=== PATIENT | female | born 1990 | race Caucasian/White ===

== ENCOUNTER 2016-07-17 14:48 | Outpatient (CLI) | payer MEDICAID | END 2016-07-17 14:49 | disposition home or self-care (01) | DX: M41.84 Other forms of scoliosis, thoracic region (principal) ==

== ENCOUNTER 2016-12-17 11:27 | Outpatient (CLI) | payer MEDICAID | END 2016-12-17 11:28 | LOC: LAB.R 11:27 | PROVIDERS: ATTEND Nurse Practitioner Obstetrics & Gynecology | DX: Z36 Encounter for antenatal screening of mother (principal) | CPT/HCPCS: 87491; 87591 ==

== ENCOUNTER 2017-01-05 14:52 | Outpatient (CLI) | payer MEDICAID ==
[2017-01-05 15:42] LABS: BASOPHILS % (AUTO) 0.4 %; EOSINOPHILS # (AUTO) 0.1 10^3/uL (0.0-0.7); EOSINOPHILS % (AUTO) 1.3 %; HCT - HEMATOCRIT 36.1 % (37.0-47.0); HGB - HEMOGLOBIN 12.3 g/dL (12.0-16.0); LYMPHOCYTES # (AUTO) 1.6 10^3/uL (1.5-3.5); LYMPHOCYTES % (AUTO) 16.8 %; MEAN CORPUSCULAR HEMOGLOBIN 31.5 pg (27.0-31.0); MEAN CORPUSCULAR HGB CONC 34.2 g/dL (32.0-36.0); MEAN CORPUSCULAR VOLUME 92.1 fL (81.0-99.0); MEAN PLATELET VOLUME 6.5 fL (7.9-10.8); MONOCYTES # (AUTO) 0.6 10^3/uL (0.0-1.0); MONOCYTES % (AUTO) 6.4 %; NEUTROPHILS % (AUTO) 75.1 %; RED BLOOD COUNT 3.91 10^6/uL (4.20-5.40); RED CELL DISTRIBUTION WIDTH 12.2 % (12.0-15.0); UNCORRECTED WHITE BLOOD COUNT 9.3 x10^3/uL; WHITE BLOOD COUNT 9.3 x10^3/uL (4.8-10.8)
[2017-01-05 16:57] LABS: BILIRUBIN,URINE NEGATIVE (NEGATIVE)
[2017-01-05 17:14] LABS: UR CULTURE IF IND NOT INDICATED
[2017-01-08 17:56] LABS: TEST RESULT REPORT (())
== END 2017-01-05 14:53 | disposition home or self-care (01) ==
LOC: LAB 14:52
PROVIDERS: ATTEND Nurse Practitioner Obstetrics & Gynecology
DX: Z36 Encounter for antenatal screening of mother (principal)
CPT/HCPCS: 36415; 81001; 81599; 85025; 86762; 86780; 86850; 86900; 86901; 87086; 87340; 87389

== ENCOUNTER 2017-01-20 08:00 | Outpatient (CLI) | payer MEDICAID | END 2017-01-20 08:01 | disposition home or self-care (01) | LOC: LAB.R 08:00 | PROVIDERS: ATTEND Nurse Practitioner Obstetrics & Gynecology | DX: R30.0 Dysuria (principal) | CPT/HCPCS: 87086 ==

== ENCOUNTER 2017-02-05 16:20 | Outpatient (CLI) | payer MEDICAID ==
[2017-02-05 16:56] LABS: BILIRUBIN,URINE NEGATIVE (NEGATIVE)
[2017-02-05 17:06] LABS: WBC,URINE 0-3 /HPF (0-5)
== END 2017-02-05 16:21 | disposition home or self-care (01) ==
LOC: LAB 16:20
PROVIDERS: ATTEND Obstetrics & Gynecology
DX: R30.0 Dysuria (principal)
CPT/HCPCS: 81001; 87086

== ENCOUNTER 2017-02-27 12:15 | Outpatient (CLI) | payer SELFPAY ==
[2017-02-27 13:11] LABS: BILIRUBIN,URINE NEGATIVE (NEGATIVE); PH,URINE 5.5 PH (5.0-7.5)
[2017-02-27 13:26] LABS: UR CULTURE IF IND NOT INDICATED
[2017-03-03 10:27] LABS: TEST RESULT REPORT (())
== END 2017-02-27 12:16 | disposition home or self-care (01) ==
LOC: LAB 12:15
PROVIDERS: ATTEND Registered Nurse
DX: Z36 Encounter for antenatal screening of mother (principal); O23.42 Unspecified infection of urinary tract in pregnancy, second trimester
CPT/HCPCS: 36415; 81001; 81599; 87086

== ENCOUNTER 2017-03-09 07:16 | Outpatient (CLI) | payer MEDICAID ==
--- NOTE | 2017-03-09 13:05 | Ultrasound Report ---
OB ULTRASOUND: 03/09/2017 CLINICAL INDICATION: anatomy. TECHNIQUE: Real-time scanning was performed with claim service representative static images obtained. LAST MENSTRUAL PERIOD 11/03/2016 Clinical Age 18 weeks 0 days US Age 19 weeks 3 days EFW Hadlock 292 g EFW% Hadlock 97% Heart Rate 148 bpm EDC 08/10/2017 US EDC 07/31/2017 BPD [place] 19 weeks 3 days; Mean mm 44.3 HC [place] 19 weeks 4 days; Mean mm 170.0 AC [place] 19 weeks 3 days; Mean mm 140.3 FL [place] 19 weeks 3 days; Mean mm 30.4 Presentation cephalic Placental Location anterior Cervical Length 4.6 cm Amniotic Fluid Subjectively normal FINDINGS: There is a single viable intrauterine gestation, in cephalic presentation. heart rate is 148 BPM. The placenta is anterior, and low lying, without zulema previa. Amniotic fluid volume is subjectively normal. By size, the fetus measures 19 weeks 3 days (uncertain LMP). The following anatomic structures were visualized and appear normal: The intracranial contents, including the ventricles and posterior fossa; the lips and orbits; the spine; the heart, including 4 chamber view and outflow tracts, and diaphragm; the abdominal contents, including the stomach, the bilateral kidneys, and urinary bladder, as well as a normal 3 vessel cord insertion; 4 limbs. No free fluid or adnexal lesion is appreciated. IMPRESSION: SINGLE VIABLE INTRAUTERINE GESTATION, MEASURING 19 WEEKS 3 DAYS BY SIZE. ANTERIOR, LOW-LYING PLACENTA. THIS SHOULD BE RE-EVALUATED IN THE THIRD TRIMESTER. MTDD
== END 2017-03-09 07:17 | disposition home or self-care (01) ==
LOC: DI 07:16
PROVIDERS: ATTEND Registered Nurse
DX: Z36 Encounter for antenatal screening of mother (principal); O44.42 Low lying placenta NOS or without hemorrhage, second trimester
CPT/HCPCS: 76811

== ENCOUNTER 2017-04-04 13:36 | Outpatient (CLI) | payer MEDICAID ==
[2017-04-04 14:04] VITALS: BP 128/71
[2017-04-04 14:19] LABS: BILIRUBIN,URINE NEGATIVE (NEGATIVE)
[2017-04-04 14:45] LABS: UA CHARGE (STRIP ONLY) YES; UR CULTURE IF IND NOT INDICATED
== END 2017-04-04 14:55 | disposition home or self-care (01) ==
LOC: WFO 13:36 → FBP 13:39 → WFO 14:55
PROVIDERS: ATTEND Obstetrics & Gynecology
DX: Z34.92 Encounter for supervision of normal pregnancy, unspecified, second trimester (principal)
CPT/HCPCS: 81001; 81003; 87086; 99212

== ENCOUNTER 2017-04-13 09:59 | Outpatient (CLI) | payer MEDICAID ==
[2017-04-13 11:48] LABS: HCT - HEMATOCRIT 35.6 % (37.0-47.0); HGB - HEMOGLOBIN 12.2 g/dL (12.0-16.0); MEAN CORPUSCULAR HEMOGLOBIN 32.6 pg (27.0-31.0); MEAN CORPUSCULAR HGB CONC 34.2 g/dL (32.0-36.0); MEAN CORPUSCULAR VOLUME 95.4 fL (81.0-99.0); RED BLOOD COUNT 3.73 10^6/uL (4.20-5.40); RED CELL DISTRIBUTION WIDTH 12.7 % (12.0-15.0); WHITE BLOOD COUNT 10.2 x10^3/uL (4.8-10.8)
== END 2017-04-13 10:00 | disposition home or self-care (01) ==
LOC: LAB 09:59
PROVIDERS: ATTEND Registered Nurse
DX: Z34.82 Encounter for supervision of other normal pregnancy, second trimester (principal)
CPT/HCPCS: 36415; 82950; 86850

== ENCOUNTER 2017-06-03 11:15 | Outpatient (CLI) | payer MEDICAID ==
[2017-06-03 11:24] VITALS: BP 108/57
[2017-06-03] MEDS ORDERED: LACTATED RINGERS 1,000 ML IV ONE ×2 (11:43→11:45)
[2017-06-03 13:29] LABS: BILIRUBIN,URINE NEGATIVE (NEGATIVE); GLUCOSE, URINE (UA) NEGATIVE (NEGATIVE); KETONES,URINE (UA) TRACE mg/dL (NEGATIVE); LEUKOCYTE ESTERASE, URINE NEGATIVE (NEGATIVE); NITRITE,URINE NEGATIVE (NEGATIVE); OCCULT BLOOD,URINE NEGATIVE (NEGATIVE); PROTEIN,URINE NEGATIVE (NEGATIVE); UROBILINOGEN,URINE 0.2 (NORMAL) E.U./dL (NORMAL)
[2017-06-03 13:43] LABS: BACTERIA,URINE Few /HPF (None Seen); CLARITY,URINE CLEAR (CLEAR); RBC,URINE 0-5 /HPF (0-5); SQUAMOUS EPITHELIAL CELL,UR FEW Squamous (<= Few)
== END 2017-06-03 14:00 | disposition home or self-care (01) ==
LOC: WFO 11:15 → FBP 11:15 → WFO 14:00
PROVIDERS: ATTEND Registered Nurse
DX: O60.03 Preterm labor without delivery, third trimester (principal); O99.283 Endocrine, nutritional and metabolic diseases complicating pregnancy, third trimester; E86.0 Dehydration; Z3A.31 31 weeks gestation of pregnancy
CPT/HCPCS: 81001; 96360; 99213; J7120; 87086

== ENCOUNTER 2017-06-19 14:26 | Outpatient (CLI) | payer MEDICAID ==
[2017-06-19 14:40] VITALS: BP 126/67
== END 2017-06-19 15:30 | disposition home or self-care (01) ==
LOC: WFO 14:26 → FBP 14:27 → WFO 15:30
PROVIDERS: ATTEND Nurse Practitioner Obstetrics & Gynecology
DX: O47.03 False labor before 37 completed weeks of gestation, third trimester (principal); Z3A.49 Greater than 42 weeks gestation of pregnancy; O43.893 Other placental disorders, third trimester
CPT/HCPCS: 59025; 76815

== ENCOUNTER 2017-06-19 17:10 | Outpatient (CLI) | payer MEDICAID ==
--- NOTE | 2017-06-19 18:18 | Ultrasound Report ---
EXAM: LIMITED OBSTETRICAL ULTRASOUND EXAM DATE: 06/19/2017 05:28 PM. CLINICAL HISTORY: Check placenta and cervix. COMPARISON: None. TECHNIQUE: Real-time sonographic evaluation of the fetus performed by the finish carpenter. Multiple repre sentative static images were saved for review. DATING: Established EGA 33 weeks 2 days with CHERRY 08/05/2017. GENERAL EVALUATION Ghotra . Cardiac activity: 129 bpm. movement: Visualized. Presentation: Cephalic. Placenta: Anterior position. Amniotic fluid: Normal. RIC 12.2 cm. MVP 4.7 cm. ANATOMY MATERNAL STRUCTURES Cervix is 2.8 cm long, with open lumen 0.9 cm across. IMPRESSION: 1. Single live cephalic fetus with unremarkable anterior placenta and normal RIC of 12.2 cm. 2. Cervix 2.8 cm long, open, with lumen 0.9 cm across. RADIA The call report notification system was initiated by Dr. Ernie Adames at 18:11 hrs on 06/19/17. The above findings were discussed with Tess by Dr. Ernie Adames at 18:13 hrs on 06/19/17. Referring Provider Line: [phone] SITE ID: [id number]
== END 2017-06-19 17:11 | disposition home or self-care (01) ==
LOC: DI 17:10
PROVIDERS: ATTEND Registered Nurse
DX: O43.893 Other placental disorders, third trimester (principal)
CPT/HCPCS: 76815

== ENCOUNTER 2017-06-20 18:28 | Outpatient (CLI) | payer MEDICAID ==
[2017-06-20 19:02] VITALS: BP 122/68
== END 2017-06-20 20:30 | disposition home or self-care (01) ==
LOC: WFO 18:28 → FBP 18:30 → WFO 20:30
PROVIDERS: ATTEND Nurse Practitioner Obstetrics & Gynecology
DX: O47.03 False labor before 37 completed weeks of gestation, third trimester (principal); Z3A.33 33 weeks gestation of pregnancy
CPT/HCPCS: 59025; 82731; 99212

== ENCOUNTER 2017-07-03 13:52 | Outpatient (CLI) | payer MEDICAID | END 2017-07-03 13:53 | disposition home or self-care (01) | LOC: LAB.R 13:52 | PROVIDERS: ATTEND Registered Nurse | DX: Z34.83 Encounter for supervision of other normal pregnancy, third trimester (principal); R82.90 Unspecified abnormal findings in urine | CPT/HCPCS: 87081; 87086 ==

== ENCOUNTER 2017-07-03 14:00 | Outpatient (CLI) | payer MEDICAID ==
[2017-07-03 17:10] LABS: PROTEIN/CREATININE RATIO,URINE 0.2 (<=0.2)
== END 2017-07-03 14:01 | disposition home or self-care (01) ==
LOC: LAB 14:00
PROVIDERS: ATTEND Registered Nurse
DX: R82.90 Unspecified abnormal findings in urine (principal); Z34.83 Encounter for supervision of other normal pregnancy, third trimester
CPT/HCPCS: 82570; 84156; 87081; 87086

== ENCOUNTER 2017-07-07 15:52 | Outpatient (CLI) | payer MEDICAID | END 2017-07-07 15:53 | disposition home or self-care (01) | LOC: LAB 15:52 | PROVIDERS: ATTEND Nurse Practitioner Obstetrics & Gynecology | DX: R82.90 Unspecified abnormal findings in urine (principal) | CPT/HCPCS: 87086 ==

== ENCOUNTER 2017-07-16 15:20 | Outpatient (CLI) | payer MEDICAID ==
[2017-07-16 15:39] VITALS: BP 127/74
== END 2017-07-16 16:10 | disposition home or self-care (01) ==
LOC: WFO 15:20 → FBP 15:23 → WFO 16:10
PROVIDERS: ATTEND Registered Nurse
DX: O36.8130 Decreased fetal movements, third trimester, not applicable or unspecified (principal); Z3A.37 37 weeks gestation of pregnancy
CPT/HCPCS: 59025

== ENCOUNTER 2017-07-24 16:06 | Outpatient (CLI) | payer MEDICAID ==
[2017-07-24 16:39] LABS: ALBUMIN 3.4 g/dL (3.2-5.5); ALKALINE PHOSPHATASE 140 IU/L (42-121); ALT ALANINE AMINOTRANSFERASE 13 IU/L (10-60); AST ASPARTATE AMINOTRANSFERASE 22 IU/L (10-42); BILIRUBIN,TOTAL 0.5 mg/dL (0.2-1.0)
[2017-07-24 16:48] LABS: BILIRUBIN,DIRECT < 0.1 mg/dL (0.1-0.5)
== END 2017-07-24 16:07 | disposition home or self-care (01) ==
LOC: LAB 16:06
PROVIDERS: ATTEND Nurse Practitioner Obstetrics & Gynecology
DX: L29.8 Other pruritus (principal)
CPT/HCPCS: 36415; 80076; 82239

== ENCOUNTER 2017-07-24 16:19 | Outpatient (CLI) | payer MEDICAID ==
[2017-07-24 16:35] VITALS: BP 110/65
== END 2017-07-24 17:10 | disposition home or self-care (01) ==
LOC: WFO 16:19 → FBP 16:21 → WFO 17:10
PROVIDERS: ATTEND Nurse Practitioner Obstetrics & Gynecology
DX: O26.893 Other specified pregnancy related conditions, third trimester (principal); Z3A.38 38 weeks gestation of pregnancy
CPT/HCPCS: 36415; 59025; 80076; 82239

== ENCOUNTER 2017-07-29 23:57 | Inpatient (IN) | payer MEDICAID ==
[2017-07-30] MEDS ORDERED: LACTATED RINGERS 1,000 ML IV ONE (00:42)
[2017-07-30] MEDS ORDERED: SODIUM CHLORIDE FLUSH 0.9% 10 ML SYRINGE IVP PRN (00:48)
[2017-07-30] MEDS ORDERED: OXYTOCIN/SODIUM CHLORIDE 250 ML IV ONE (00:48)
[2017-07-30] MEDS ORDERED: fentaNYL 100 MCG/2 ML VIAL IVP PRN (00:48)
--- NOTE | 2017-07-30 00:53 | HISTORY & PHYSICAL EXAMINATION ---
Admit History - Instructions [place]/Slash: -Left hand click circles element as positive or present. -Right hand click slashes element as negative or not present. - Visit Reason Visit Reason: Contractions (contractions began regularly around 21:00, became increasingly intense ~23:00, after which time pt could no longer bear to be supine or resting) - : 3 Parity: 1 Premature: 0 Ectopic: 0 : 1 Care: positive: [facility] Risk/History: positive: None Complications This : positive: Other (Maternal anxiety; taking sertraline 50mg po daily w/ modest effect--anxiety remains) Smoking Status: Never smoker - Mother's Labs Mother's Blood Type: positive: O Mother's RH: positive: Positive GBS: positive: Group B Step Negative Rubella Status: positive: Immune - Other Maternal History Other Maternal History: Hx macrosomic w/o complication: 9#15oz @ term; low-lying placenta this w/ resolution on 32-week Meds/Allgy - Home Medications Home Medications: Ambulatory Orders Medication Instructions Recorded Confirmed Pnv No.121/Iron/Folic Acid 1 each PO 07/30/17 [ Multivitamin Tablet] Sertraline [Zoloft] 50 mg PO DAILY 07/30/17 07/30/17 - Allergies Allergies/Adverse Reactions: Allergies Allergy/AdvReac Type Severity Reaction Status Date / Time No Known Drug Allergies Allergy Verified 06/11/13 07:51 Physical - Abdominal Exam Vital Signs: Temp Pulse Resp BP Pulse Ox 36.6 C 99 20 125/86 H 100 07/30/17 00:07 07/30/17 00:07 07/30/17 00:07 07/30/17 00:07 07/30/17 00:07 Contraction Frequency (min/apart): 2-3 Contraction Intensity: positive: Moderate to strong Uterine Resting Tone: positive: Soft - Monitoring Heart Rate Baseline: 140 Strip Review: positive: Category I (+ accels, no decels, mod kelsey) - Presentation Presentation: positive: Vertex - Vaginal Exam Membranes: positive: Membranes intact Dilation (in cm): 5 Effacement (%): 75 Station: positive: -2 (per RN) Cervical Position: positive: Midposition - Speculum Exam Speculum Exam Performed: positive: No Findings: negative: Gross leak - Other Notes Labor Progress Note/Additional Text: Lexie Hatch is a 27 y/o @ 39w1d by 7 wk US consistent w/ LMP dating who presented for care @ 7 weeks' gestation. She was seen for a total of 16 visits. Her was complicated by maternal anxiety, which was only moderately managed w/ 50mg po sertraline daily. She was seen for multiple bouts of threatened labor, none of which were substantiated. She had a low-lying placenta noted on her 20-week FAS, which had resolved entirely @ f/u @ 32 weeks. Her was further complicated by persistent low back pain, for which she utilized a maternity support belt and saw physical therapy w/ modest relief. She presents this evening w/ a complaint of uterine contractions beginning regularly @ 2100. Her contractions became progressively frequent & intense @ 2300, at which time she could no longer rest. She denies LOF/VB. She reports good FM. She requests epidural anesthesia for pain management. LABS: Her labs are as follows; O+, antibody neg, Rubella Imm, Hep Bsag neg, HIV neg, RPR neg, gc/ct neg, quad screen low-risk, gtt 126mg/dL, h/h 12.2/35.6, PLT 258K, FFN neg, GBS neg, LFTs WNL,total bile acids WNL Meds: vitamin 1 po daily; sertraline 50mg po daily OB hx: first trimester SAB w/o complication x1; FTNSVD of macrosomic (9# 15oz) x1, no complications 2013 [employer] hx: unremarkable; normal pap 07/2016 PMH: depression/anxiety, UTI PSH: external fixator placement 2009, no other Social hx: to [place], no DV; works f/t as [employer]; one daughter, Ellie, no problems; Plans [facility] peds, . Former smoker occasionally as a teenager, no tob/ETOH/drugs this , hx depression w/o SI ROS: GEN: DENIES FEVER/CHILLS, SOME FATIGUE HEENT: DENIES MOORE/VISION CHANGES CARDIAC: DENIES CP/SOB/PALPITATIONS RESP: DENIES SOB/DYSPNEA/COUGH GI: DENIES N/V/D : DENIES DYSURIA, NO LESIONS, SOME BLOODY SHOW EARLIER, NO FAUSTO BLEEDING/LOF/ UNUSUAL D/C OB: +FM, +PAINFUL REGULAR UTERINE CONTRACTIONS, NO LOF, NO FAUSTO VB MS: +LOW BACK PAIN, FROM, MILD B/L LE EDEMA NEURO: NO NUMBNESS/TINGLING/WEAKNESS PSYCH: +ANXIETY, NO DEPRESSION SKIN: SOME PRURITUS, NO RASH PE: GEN: AAOX3, UNCOMFORTABLE GRAVID FEMALE HEENT: GROSSLY NORMOCEPHALIC, ATRAUMATIC CARDIAC: RRR NL S1S2, NO MURMUR RESP: LUNGS B/L CTA T/O GI: ABD GRAVID, NT, PALPABLE MODERATE CONTRACTIONS, PALPABLE MOVEMENT : NO LESION PER RN, SOME BLOODY MUCOID D/C OB: SVE PER RN: 5/75/-2 IBOW; EFM: BL 140BPM, + ACCELS, NO DECELS, MOD KELSEY; TOCO : UCS Q2-3 MIN X60 SECONDS, PALPABLY MODERATE; LIE LONGITUDINAL, PRESENTATION CEPHALIC, EFW 9# MS: FROM T/O, TRACE B/L LE EDEMA NEURO: NO FOCAL DEFICIT PSYCH: MILD ANXIETY, OTHERWISE NORMAL MOOD, BLUNTED AFFECT, WHICH IS PT'S BASELINE SKIN: C/D/I, WARM, WELL-PERFUSED, NO LESION Plan for Labor - Plan For Labor Plan for Labor: 1. Admit to FBP 2. CBC/blood bank hold 3. Insert peripheral IV: fentanyl 100mcg q 1 hr PRN pain prior to epidural insertion 4. Epidural insertion requested now for anesthesia 5. Reassess cervical status x4 hours, earlier PRN 6. Encouraged maternal rest 7. Anticipate ; plan AMTSL; shoulder dystocia precautions, given hx of macrosomia & EFW this
[2017-07-30] MEDS: LACTATED RINGERS 1,000 ML IV SCH ×2 (01:00→01:57)
[2017-07-30 02:09] LABS: BASOPHILS # (AUTO) 0.1 10^3/uL (0.0-0.1); BASOPHILS % (AUTO) 0.7 %; EOSINOPHILS # (AUTO) 0.2 10^3/uL (0.0-0.7); EOSINOPHILS % (AUTO) 1.1 %; HGB - HEMOGLOBIN 11.6 g/dL (12.0-16.0); LYMPHOCYTES # (AUTO) 2.4 10^3/uL (1.5-3.5); LYMPHOCYTES % (AUTO) 12.4 %; MEAN CORPUSCULAR HEMOGLOBIN 31.1 pg (27.0-31.0); MEAN CORPUSCULAR HGB CONC 33.1 g/dL (32.0-36.0); MEAN CORPUSCULAR VOLUME 94.1 fL (81.0-99.0); MEAN PLATELET VOLUME 9.3 fL (7.9-10.8); MONOCYTES # (AUTO) 1.5 10^3/uL (0.0-1.0); NEUTROPHILS # (AUTO) 14.9 10^3/uL (1.5-6.6); NEUTROPHILS % (AUTO) 77.8 %; PLT - PLATELET COUNT 283 10^3/uL (130-450); RED BLOOD COUNT 3.72 10^6/uL (4.20-5.40); RED CELL DISTRIBUTION WIDTH 13.5 % (12.0-15.0); WHITE BLOOD COUNT 19.1 x10^3/uL (4.8-10.8)
[2017-07-30 02:27] LABS: PLATELET ESTIMATE, MANUAL NORMAL (130-450,000) (NORMAL); PLATELET MORPHOLOGY 1+ GIANT PLATELETS (NORMAL); RBC MORPHOLOGY (MULTIPLE) NORMAL APPEARANCE (NORMAL)
[2017-07-30 02:28] LABS: DIFFERENTIAL COMMENT MANUA
[2017-07-30] MEDS ORDERED: fent/BUPIV 2 MCG/0.125% 250 ML EP ONE (02:36)
[2017-07-30] MEDS ORDERED: BUPIVACAINE 0.5% PF 10 ML VIAL IM ONE (02:50)
[2017-07-30] MEDS ORDERED: WITCH HAZEL/GLYCERIN 1 EACH MED..PAD TOP PRN (03:28)
[2017-07-30] MEDS ORDERED: HYDROCORTISONE/PRAMOXINE 10 GM PR PRN (03:28)
[2017-07-30] MEDS ORDERED: HYDROCORTISONE 1% CREAM 28 GM TUBE PR PRN (03:28)
--- NOTE | 2017-07-30 03:36 | DELIVERY NOTE ---
Delivery Note - Labor Labor: positive: Spontaneous - Delivery Method Delivery Method: positive: Spontaneous vaginal delivery - Presentation Presentation: positive: Vertex, JAN - right occiput anterior - Nuchal Cord Nuchal Cord: positive: Present (x1, loose, non-compressed), Reduced - Anesthetic Anesthetic Type: - Amniotic Fluid Description Amniotic Fluid Description: positive: Moderate meconium - Episiotomy Type Episiotomy Type: positive: None - Laceration Laceration: positive: None - Delivery Outcome Delivery Outcome: positive: Livebirth - [place]: positive: Placed in direct skin contact with mother, Suctioned, Bulb syringe, Stimulated, Radnor used [place] sex: positive: Female - Cord Cord: positive: 3 vessels - Placenta Placenta: positive: Intact, Spontaneous (Deshaun) - Estimated Blood Loss Estimated Blood Loss (in cc): 200 - Post Delivery Events Post Delivery Events: positive: No post delivery events - Delivery Comments (Free Text/Narrative) Delivery Comments (Free Text/Narrative): Lexie Hatch is a 27 y/o [id number] who presented in active, spontaneous labor @ 39w1d by 1st trimester US. She received 1 dose of 100mcg fentanyl IVP for analgesia & an epidural for anesthesia. She experienced SROM for MSAF @ 0245 & was found to be complete & +1 station @ 0250, for a total first stage duration of 5 hours, 50 minutes. She pushed w/ spontaneous urge & excellent expulsive effort beginning @ 0302 to viable female in JAN position over an intact perineum @ 0309, for a total 2nd stage duration of 17 minutes. Loose nuchal x1 easily reduced prior to delivery of shoulders & body. Infant vigorous w/ spontaneous, lusty cry. Placed to maternal abdomen for drying/stim. Bulb suctioned for moderate meconium-stained secretions. Delayed cord clamping until cessation of pulsation, then cord clamped x2 by CNM, cut by FOB, 3VC noted , cord blood obtained. AMTSL w/ Pitocin in IV fluids. Placenta del spont & intact, Deshaun, @ 0321, for a total 3rd stage duration of 12 minutes. Vagina & perineum inspected & found to be intact. Fundus firm @ U-1. EBL 200mL. Infant stable, Apgars 8 @ 1 min & 9 @ 5 min; weight pending. Mother stable, initiating . Has had a successful experience in the past, will increase sertraline to 100mg po daily for prevention of depression exacerbation in the PP period. Bonding well. FOB & pt's mother @ bedside, involved & supportive.
[2017-07-30] MEDS: ACETAMINOPHEN 325 MG TABLET PO PRN ×2 (05:42→15:10)
[2017-07-30] MEDS: SERTRALINE 50 MG TABLET PO SCH (08:14)
[2017-07-30] MEDS: CELECOXIB 100 MG CAPSULE PO SCH (08:14)
[2017-07-30] MEDS: DOCUSATE SODIUM 100 MG CAPSULE PO SCH (08:14)
[2017-07-30] MEDS: SODIUM CHLORIDE FLUSH 0.9% 10 ML SYRINGE IVP SCH ×2 (17:57→17:58)
--- NOTE | 2017-07-30 22:09 | PROVIDER PROGRESS NOTE ---
Subjective - Prog Note Date Prog Note Date: 07/30/17 Prog Note Time: 22:00 - Subjective Pt reports feeling: Improved Subjective: Lexie is doing well. She is w/ excellent latch & no difficulty. She reports adequate pain control w/ acetaminophen & NSAIDs. She reports minimal lochia rubra. She is ambulating & voiding w/o difficulty & is tolerating po intake. She reports that her toddler responded well to meeting the . She is planning 12 weeks of pp leave & her partner will have 2 weeks off to assist her. She reports additional excellent social support. She increased her po sertraline dosing to 100mg po daily & reports that her mood is presently stable. Objective - Vital Signs/Intake & Output Vital Signs: Vital Signs x48h Temp Pulse Pulse Resp BP Pulse Ox 07/30/17 19:58 37.2 C 83 18 124/62 97 07/30/17 15:16 37.0 C 74 17 126/76 98 Intake & Output: Intake & Output 07/27/17 07/28/17 07/29/17 07/30/17 23:59 23:59 23:59 23:59 Intake Total 2500 Balance 2500 - Objective General Appearance: positive: No acute distress, Alert Eyes Bilateral: positive: Normal inspection, PERRL, EOMI Respiratory: positive: Chest non-tender, No respiratory distress, Breath sounds nml Cardiovascular: positive: Regular rate & rhythm, No murmur, No gallop Abdomen: positive: Non-tender, No distention, Other (FF U-1) Skin: positive: Color nml, No rash, Warm, Dry Extremities: positive: Non-tender, Full ROM, Nml appearance, No pedal edema. negative: Calf tenderness Neurologic/Psychiatric: positive: Oriented x3, CN's nml (2-12), Motor nml, Sensation nml, Mood/affect nml Comments/Other: Breasts b/l s, nt; nipples b/l intact & everted, colostrum easily expressible; observed latch 10/10; perineal exam deferred per pt request, intact - Lab Results Fish Bones: 07/30/17 00:50 Other Labs: Lab Results x24hrs 07/30/17 Range/Units 00:50 WBC 19.1 H (4.8-10.8) x10^3/uL RBC 3.72 L (4.20-5.40) 10^6/uL Hgb 11.6 L (12.0-16.0) g/dL Hct 35.0 L (37.0-47.0) % MCV 94.1 (81.0-99.0) fL MCH 31.1 H (27.0-31.0) pg MCHC 33.1 (32.0-36.0) g/dL RDW 13.5 (12.0-15.0) % Plt Count 283 (130-450) 10^3/uL MPV 9.3 (7.9-10.8) fL Neut # 14.9 H (1.5-6.6) 10^3/uL Lymph # 2.4 (1.5-3.5) 10^3/uL [place] # 1.5 H (0.0-1.0) 10^3/uL Eos # 0.2 (0.0-0.7) 10^3/uL Baso # 0.1 (0.0-0.1) 10^3/uL Absolute Nucleated RBC 0.00 x10^3/uL Band Neuts % (Manual) Not Reportable Abnorm Lymph % (Manual) Not Reportable Nucleated RBC % 0.0 /100WBC Neutrophils # (Manual) HAND CLOTH EXAMINER Lymphocytes # (Manual) Not Reportable Monocytes # (Manual) Not Reportable Eosinophils # (Manual) Not Reportable Basophils # (Manual) Not Reportable Differential Comment MANUA Platelet Estimate NORMAL (130-450,000) (NORMAL) Platelet Morphology 1+ GIANT PLATELETS (NORMAL) RBC Morph Micro Appear NORMAL APPEARANCE (NORMAL) Assessment/Plan - Problem List (1) (normal spontaneous vaginal delivery) Impression: PPD #0 s/p of 8#13oz infant w/o laceration Normal uterine involution well w/ excellent latch Adequate pain control w/o opioid analgesia Hx of depression w/ mood presently stable on 100mg po sertraline daily Plan: 1. continue routine pp care 2. support PRN, pt denies need for assistance @ this time 3. continue sertraline 100mg po daily; reviewed warning s/sx for pp depression 4. Anticipate D/C home PPD#1 per pt request
[2017-07-31] MEDS: CELECOXIB 100 MG CAPSULE PO SCH (00:12)
[2017-07-31] MEDS: DOCUSATE SODIUM 100 MG CAPSULE PO SCH ×2 (00:12→08:57)
[2017-07-31 08:20] VITALS: BP 131/69
[2017-07-31] MEDS: SERTRALINE 50 MG TABLET PO SCH (08:56)
[2017-07-31] MEDS: ACETAMINOPHEN 325 MG TABLET PO PRN (08:56)
[2017-07-31] MEDS: SODIUM CHLORIDE FLUSH 0.9% 10 ML SYRINGE IVP SCH ×2 (08:58→08:59)
--- NOTE | 2017-07-31 10:05 | Discharge Plan ---
Discharge Plan Disposition: Home, Self Care Condition: Good Prescriptions: Sertraline [Zoloft] 100 mg PO DAILY #90 tablet Diet: Regular Activity Restrictions: pelvic rest Shower Restrictions: No Driving Restrictions: No Weight Bearing: Full Weight Instruction Topics: Vaginal After, Breastfeed How To, Jaundice Signs Inf , Exercises Kegel Additional Instructions or Follow Up instructions: Followup for care with Shaniqua Short CNM, in clinic Followup visits for care at 3 weeks and 8 weeks s/p delivery No Smoking: If you smoke, Please STOP! Call for help. Follow-up with: Shaniqua Short CNM, [place]OURT[place] [Provider Admit Priv/Credential] -
--- NOTE | 2017-07-31 10:08 | DISCHARGE SUMMARY ---
"Discharge Summary Admit Date: 07/30/17 Discharge Date: 07/31/17 Discharging Provider: RAÚL Code Status: Attempt Resuscitation Condition at Discharge: Good Discharge Disposition: 01 Home, Self Care Discharge Facility Name: [facility] - DIAGNOSES Admission Diagnoses: ACTIVE SPONTANEOUS LABOR @ TERM Discharge Diagnoses with Status of Each Condition: : GOOD CONDITION - HPI History of Present Illness: Lexie Hatch is a 27 y/o [id number] who was admitted in active, spontaneous labor @ term. She progressed spontaneously & received 100mcg fentanyl IVP x1 for analgesia & an epidural for anesthesia. She experienced SROM for moderate MSAF @ complete dilatation & delivered a full-term viable female vaginally over an intact perineum w/o complication. apgars 8/9. - CONSULTS | PROCEDURES Consultations: Anesthesia Procedures: Epidural placement - HOSPITAL COURSE Hospital Course: , Lexie is ambulating & voiding w/o difficulty. She is passing flatus & tolerating po intake. She is well w/ excellent latch & no discomfort & has had a previously successful experience. Her pain is well-controlled w/ non-opioid analgesia & her lochia is minimal. She is planning pp nexplanon placement for contraception & does not intend another . She has a hx of anxiety & depression that has been moderately controlled w/ 50mg po sertraline daily; she has increased to 100mg po daily & her mood is presently stable. She denies hx of pp depression. She will have 12 weeks of pp leave w/ her & reports excellent social support. She is able to fully articulate pp warning s/sx, including pp depression s/sx, and pp aftercare instructions. She is ready to leave the hospital. She plans pp f/u x3 weeks, earlier PRN. - ALLERGIES Allergies/Adverse Reactions: Allergies Allergy/AdvReac Type Severity Reaction Status Date / Time No Known Drug Allergies Allergy Verified 06/11/13 07:51 - MEDICATIONS Home Medications: Ambulatory Orders Medication Instructions Recorded Confirmed Pnv No.121/Iron/Folic Acid 1 each PO 07/30/17 [ Multivitamin Tablet] Sertraline [Zoloft] 100 mg PO DAILY #90 tablet 07/31/17 - PHYSICAL EXAM AT DISCHARGE General Appearance: positive: No acute distress, Alert Eyes Bilateral: positive: Normal inspection, PERRL, EOMI Respiratory: positive: Chest non-tender, No respiratory distress, Breath sounds nml Cardiovascular: positive: Regular rate & rhythm, No murmur, No gallop Abdomen: positive: Non-tender, Other (FF U-2) Skin: positive: Color nml, No rash, Warm, Dry Extremities: positive: Non-tender, Full ROM, Nml appearance, No pedal edema. negative: Calf tenderness Neurologic/Psychiatric: positive: Oriented x3, CN's nml (2-12), Motor nml, Sensation nml Physical Exam Other/Comments: Breasts b/l s, NT; nipples b/l intact & everted. Declines perineal exam,r eports no problems, minimal bleeding - LABS Result Diagrams: 07/30/17 00:50 - FOLLOW UP Follow Up: in outpatient clinic x3 weeks and again x8 weeks, earlier PRN; with marianna glasgow CNM, ARNP - TIME SPENT Time Spent in Discharge (Minutes): 30"
--- NOTE | 2017-07-31 10:48 | Labor Flowsheet ---
Labor Flowsheet Datetime Report Generated by CPN: 07/31/2017 10:48 Datetime: 07/31/2017 08:19 VITAL SIGNS NBP Sys/Josephine/Mean (mmHg): 131 : 69 : 83 Pulse: 86 SpO2 (%): 100 LaborFlag: Labor Datetime: 07/30/2017 03:09 Comments: , nuchal x 1, female Datetime: 07/30/2017 03:05 ASSESSMENT A Monitor Mode: External US FHR Baseline Rate : 125 Variability: Moderate 6-25 bpm Accelerations: 10X10 Decelerations: Variable Category: Category II Pushing Position: Pushing with Contractions Pushing Progress: Descent with Pushing Datetime: 07/30/2017 03:02 STAGE 2 Pushing: Coached on Pushing; Urge to Push Datetime: 07/30/2017 02:58 Provider Reviewed Strip: Yes COMMUNICATION Communication: Provider at Bedside Provider Notified (Name): CNM Milagrosa Notification Reason: Status Update; Status; Labor Status Datetime: 07/30/2017 02:50 UTERINE ACTIVITY Monitor Mode: External Monitor Interventions for UA: [place] Adjusted Frequency (min): 2-3 Quality: Moderate Duration (sec): 50-60 Pattern: Normal: <= 5 Contractions in 10 Minutes Resting Tone (Palpate): Relaxed FHR Baseline Changes: No Baseline Change PAIN Pain Scale: 0 VAGINAL EXAM Dilatation (cm): 10.0 Effacement (%): 100 Station: 1 Exam by: Velasquez [facility] Vaginal Bleeding: None Anesthesia Level Check: T8- Ribs Datetime: 07/30/2017 02:37 Epidural Procedure: Loading Dose Anesthesia Comments: 4th dose of .25% marcaine (5cc divided for total of 20ml) Datetime: 07/30/2017 02:31 Membrane Status: Ruptured Membranes Rupture Method: Spontaneous Amniotic Fluid Color: Light Meconium Amniotic Fluid Amount: Small Amniotic Fluid Odor: Normal Datetime: 07/30/2017 02:30 Pain Presence: Intermittent Pain Type: Sharp; Contraction Pain Location: Back; Left Groin; Left Hip Pain Goal: 5 Pain Relief Measures: Epidural Given Pain Coping: Breathing Through Contractions Datetime: 07/30/2017 02:28 Patient Position/Activity: Right Lateral Datetime: 07/30/2017 02:09 Respirations: 24 Datetime: 07/30/2017 02:01 Patient Care Comments: sitting up for epidural Datetime: 07/30/2017 01:59 PATIENT CARE IV/Blood Work: New IV Bag Hung; IV Bag Number @ 2 Datetime: 07/30/2017 01:57 PROCEDURE TIME OUT Procedure Type: @0155 for epidural Procedure Verify: Correct Patient Identity; Correct Side and Site are Marked; Accurate Procedure Co nsent Form; Agreement on Procedure to be Done; Correct Patient Position; Addressed Need to Administer Antibiotics or Fluids for Irrigation; Safety Precautions Based on Patient History or Medication Use ANESTHESIA Anesthesia Plans: Epidural Epidural Positioning: Sitting Datetime: 07/30/2017 01:53 Communication Comments: Pt requesting epidural Datetime: 07/30/2017 01:40 MATERNAL ASSESSMENT Level of Consciousness: Fully Conscious DTR's/Clonus: DTRs 3+; No Clonus Headache: Denies Breath Sounds, Left: Clear and Equal Breath Sounds, Right: Clear and Equal Nausea/Vomiting: Denies RUQ Epigastric Pain: Denies TEACHING Instructional Method: Verbal Plan of Care: Plan of Care Discussed; Vaginal Delivery Unit Routine: [place] to Room; Call [place]; Bed; Visiting Policy; Waiting Areas; Security; Phon e/Cell Phone Use; Photography; Unit Personnel; Handwashing; Flu/Illness Precautions; Monitoring ; IV Pumps; Safety/Fall Risk Prevention; Diet/Nutrition Services; Bathroom Privileges; Routine Time O uts; Medications Pain Management: IV Narcotics; Epidural Datetime: 07/30/2017 01:30 Stage of : Labor MEDICATIONS Analgesics/Sedatives: Fentanyl (mcg) @ 100 Datetime: 07/30/2017 01:07 I/O Interventions: Up to BR
== END 2017-07-31 10:35 | disposition home or self-care (01) | DRG 775 ==
LOC: WFO 23:57 → FBP 23:58 → WFO 07-30 00:47 → FBP 07-30 00:48
PROVIDERS: ADMIT Registered Nurse; ATTEND Registered Nurse
PROC: 10E0XZZ Delivery of Products of Conception, External Approach (ICD-10-PCS; principal; 2017-07-30)
DX: O99.344 Other mental disorders complicating childbirth (principal); F41.9 Anxiety disorder, unspecified; F32.9 Major depressive disorder, single episode, unspecified; O69.81X0 Labor and delivery complicated by cord around neck, without compression, not applicable or unspecified; O77.0 Labor and delivery complicated by meconium in amniotic fluid; Z3A.39 39 weeks gestation of pregnancy; Z37.0 Single live birth
CPT/HCPCS: 85025; 99213

== ENCOUNTER 2019-01-25 16:26 | Outpatient (CLI) | payer MEDICAID ==
[2019-01-25 16:43] LABS: BASOPHILS # (AUTO) 0.1 10^3/uL (0.0-0.1); BASOPHILS % (AUTO) 0.6 %; EOSINOPHILS # (AUTO) 0.1 10^3/uL (0.0-0.7); EOSINOPHILS % (AUTO) 1.6 %; HGB - HEMOGLOBIN 12.7 g/dL (12.0-16.0); LYMPHOCYTES # (AUTO) 2.4 10^3/uL (1.5-3.5); LYMPHOCYTES % (AUTO) 30.3 %; MEAN CORPUSCULAR HEMOGLOBIN 31.4 pg (27.0-31.0); MEAN CORPUSCULAR HGB CONC 32.7 g/dL (32.0-36.0); MEAN CORPUSCULAR VOLUME 95.8 fL (81.0-99.0); MEAN PLATELET VOLUME 8.5 fL (7.9-10.8); MONOCYTES # (AUTO) 0.7 10^3/uL (0.0-1.0); MONOCYTES % (AUTO) 8.7 %; NEUTROPHILS # (AUTO) 4.7 10^3/uL (1.5-6.6); NEUTROPHILS % (AUTO) 58.7 %; PLT - PLATELET COUNT 219 10^3/uL (130-450); RED BLOOD COUNT 4.05 10^6/uL (4.20-5.40); RED CELL DISTRIBUTION WIDTH 11.9 % (12.0-15.0); WHITE BLOOD COUNT 7.9 x10^3/uL (4.8-10.8)
[2019-01-25 16:55] LABS: ALBUMIN 4.3 g/dL (3.2-5.5); ALBUMIN/GLOBULIN RATIO 1.6 (1.0-2.2); BILIRUBIN,TOTAL 0.4 mg/dL (0.2-1.0); CALCIUM 9.3 mg/dL (8.5-10.3); CREATININE 0.6 mg/dL (0.4-1.0)
== END 2019-01-25 16:27 | disposition home or self-care (01) ==
LOC: LAB 16:26
PROVIDERS: ATTEND Nurse Practitioner
DX: R53.83 Other fatigue (principal); F32.9 Major depressive disorder, single episode, unspecified
CPT/HCPCS: 36415; 80053; 84443; 85025

== ENCOUNTER 2019-11-03 14:45 | Outpatient (CLI) | payer MEDICAID ==
[2019-11-03 21:52] LABS: CANDIDA KRUSEI DNA UNRESOLVED (NEGATIVE); TRICHOMONAS VAGINALIS DNA UNRESOLVED (NEGATIVE)
[2019-11-03 21:53] LABS: CANDIDA GROUP DNA UNRESOLVED (NEGATIVE)
== END 2019-11-03 23:59 | disposition home or self-care (01) ==
LOC: LAB.R 14:45
PROVIDERS: ATTEND Advanced Practice Midwife
DX: Z30.431 Encounter for routine checking of intrauterine contraceptive device (principal); N89.8 Other specified noninflammatory disorders of vagina
CPT/HCPCS: 87661; 87801

== ENCOUNTER 2019-11-06 16:37 | Outpatient (CLI) | payer MEDICAID ==
--- NOTE | 2019-11-06 18:30 | Ultrasound Report ---
Reason: VAGINAL DISHCHARGE/CONTRACEPTIVE SURVEILLANCE Procedure Date: 11/06/2019 Accession Number: [id number] / [id number] Procedure: US - Pelvic w/Transvaginal CPT Code: Addended Final Report FULL RESULT: EXAM: PELVIC ULTRASOUND EXAM DATE: 11/06/2019 04:40 PM. CLINICAL HISTORY: VAGINAL DISHCHARGE/CONTRACEPTIVE SURVEILLANCE. COMPARISON: None. TECHNIQUE: Realtime transabdominal pelvic scan performed to identify the uterus and adnexa and as an overview of other pelvic structures, followed by transvaginal scan to provide greater detail of the uterus and adnexa, with static image documentation. FINDINGS: Uterus: 8.6 x 4 x 5.4 cm, volume 98 cc. Anteverted position. Normal overall size and echotexture. Masses: None. Endometrium: 7 mm. An IUD is present in appropriate position in the uterine fundus. Cervix: Unremarkable. Right Ovary: 3.6 x 1.1 x 2.1 cm, volume 4.2 cc. Normal echotexture and blood flow. Left Ovary: 3.5 x 2 x 2.2 cm, volume 8 cc. Normal echotexture and blood flow. There is a involuting corpus luteal cyst measuring 2.2 cm. Free Fluid: None. Other: None. IMPRESSION: 1. IUD in appropriate position. 2. Otherwise, unremarkable pelvic ultrasound. RADIA The call report notification system was initiated by Dr. Topher Moeller at 06:28 PM on 11/06/2019. ADDENDUM: 11/06/19 18:35 The above call report findings were discussed with Samira Mitchell NP by Dr. Topher Moeller at 06:36 PM on 11/06/2019.
== END 2019-11-06 16:38 | disposition home or self-care (01) ==
LOC: DI 16:37
PROVIDERS: ATTEND Advanced Practice Midwife
DX: Z30.431 Encounter for routine checking of intrauterine contraceptive device (principal)
CPT/HCPCS: 76830; 76856

== ENCOUNTER 2020-04-19 17:16 | Outpatient (CLI) | payer MEDICAID | END 2020-04-19 17:17 | disposition home or self-care (01) | LOC: COV 17:16 | PROVIDERS: ATTEND Family Medicine | DX: R50.9 Fever, unspecified (principal); R05 Cough; M79.10 Myalgia, unspecified site; R53.83 Other fatigue; J02.9 Acute pharyngitis, unspecified; R09.81 Nasal congestion; Z20.828 Contact with and (suspected) exposure to other viral communicable diseases ==